=== PATIENT | female | born 1995 | race Caucasian/White ===

== ENCOUNTER 2020-09-26 10:01 | Emergency (ER) | payer MEDICAID, SELFPAY ==
[2020-09-26 10:10] VITALS: BP 120/79; PULSE 86; RESP 20; TEMP 36.6; O2SAT 100; BMI 24.7
[2020-09-26 10:38] LABS: UTC Influenza A Antigen Negative (Negative)
[2020-09-26 10:39] LABS: UTC Influenza B Antigen Negative (Negative)
--- NOTE | 2020-09-26 10:44 | HMH.EDUTC ---
[facility] [place] Clinical Impression: Dental abscess, Exposure to COVID-19 virus Sinusitis Qualifiers: Sinusitis location: unspecified location Chronicity: acute Recurrence: non-recurrent Qualified Code(s): J01.90 - Acute sinusitis, unspecified Disposition: Home, Self-Care Condition on Discharge: Good Instructions: DI for Sinusitis, Preventing the Spread of Coronavirus Discharge Instructions Additional Instructions: Drink plenty of fluids. Take tylenol for pain or fever. Return if you begin to have difficulty breathing. Follow up with your regular doctor. GO TO THE ER FOR ANY WORSENING SYMPTOMS Prescriptions: clindamycin HCL [Clindamycin HCl] 300 mg PO TID 10 Days #30 cap Transmission Status: Received by [id number] Referrals: PCP,No [Primary Care Provider] - Time of Disposition: 10:49 Medical Decision Making - Medical Records Medical records reviewed: No: I reviewed the patient's medical records. - Tarun Inquiry Pt receiving controlled substance: No Vital Signs: 09/26/20 10:10 09/26/20 10:59 Temperature 97.8 F 97.8 F Temperature Source Oral Pulse Rate 86 Pulse Rate [Right Brachial] 86 Respiratory Rate 20 20 Blood Pressure 120/79 Blood Pressure [Right Arm] 120/79 Blood Pressure Mean [Right Arm] 92 Blood Pressure Source [Right Arm] Automatic Cuff Blood Pressure Position [Right Arm] Sitting 02 Sat by Pulse Oximetry 100 Oxygen Delivery Method Room Air - Lab Data Lab Results 09/26/20 10:29: Influenza Type A Ag Negative, Influenza Type B Ag Negative Orders (Tests/Meds): ORDERS Category Date Time Status Covid-19 Nasal PCR Sendout [facility] 09/26/20 10:15 Received [facility] [place] - General Stated complaint: runny nose,cough Time Seen by Provider: 09/26/20 10:44 Mode of Arrival: Ambulatory Source of Information: Patient Limitations: No Limitations Description of Symptoms (Recalled from Triage Doc. by RN): PATIENT C/O COUGH, RUNNY NOSE, SOA, CHILLS, AND EYES WATERING X 2 WEEKS. ALSO C/O PAIN AND SWELLING TO A RIGHT BOTTOM TOOTH HEENT Symptoms (Recalled from RN notes): Yes Resp Symptoms (Recalled from RN notes): Yes Skin Symptoms (Recalled from RN notes): No MS Symptoms (Recalled from RN notes): No Functional Status (Recalled from RN notes): WNL - History of Present Illness Provider Complaint: She c/o sinus congestion, right sided facial puffiness when she first wakes up in the morning, nasal drainage and dental pain. She states that she has an abscessed tooth on the right lower side of her mouth. She denies any fever or chills. - Related Data Previous Rx's Medication Instructions Recorded clindamycin HCL [Clindamycin HCl] 300 mg PO TID 10 Days #30 cap 09/26/20 Allergies Allergy/AdvReac Type Severity Reaction Status Date / Time Penicillins Allergy Unknown - Verified 05/02/18 13:28 - Worker's Comp Is this a Worker's Comp case?: No [facility] History - Hepatitis A Screen Drug use history?: No High risk sexual behaviors?: No History of sexually transmitted infection?: No Currently employed?: No Childcare worker?: No Do you have indoor plumbing?: Yes Do you have electricity?: Yes Attestation statement:: This patient has been screened for Hepatitis A risk factors. I have reviewed the patient's past medical history: Yes Medical History: Denies:: Cancer, Diabetes Mellitus Type 1, Diabetes Mellitus Type 2, MRSA Amputation: No Fractures: No - Social History Smoking Status: Current every day smoker Tobacco Type: cigarettes # Packs/Day (cigarettes): 0 Alcohol Intake: never Occupational Status: other ROS Obtained: Yes All systems reviewed & no additional complaints - Constitutional Constitutional: Reports system reviewed and no additional complaints, except as docu - Eyes Eyes: Reports system reviewed and no additional complaints, except as docu - ENT Ears, Nose, Mouth, and Throat: Reports as per HPI - Cardiovascular
[2020-09-26 10:59] VITALS: BP 120/79; PULSE 86; RESP 20; TEMP 36.6; O2SAT 100
[2020-09-27 13:58] LABS: Covid-19 Nasal PCR Sendout Lex Not Detected
== END 2020-09-26 11:02 | disposition home or self-care (01) ==
PROVIDERS: Emergency Provider Nurse Practitioner Family
DX: Z20.828 Contact with and (suspected) exposure to other viral communicable diseases (principal); K04.7 Periapical abscess without sinus; J01.90 Acute sinusitis, unspecified
CPT/HCPCS: 87804; 99201; U0004

== ENCOUNTER → 2020-12-16 10:26 | Outpatient (CLI) | payer MEDICAID, SELFPAY | PROVIDERS: Visit Provider Nurse Practitioner Obstetrics & Gynecology | DX: Z34.90 Encounter for supervision of normal pregnancy, unspecified, unspecified trimester (principal) | CPT/HCPCS: 36415; 84702 ==

== ENCOUNTER → 2021-02-10 14:49 | Outpatient (CLI) | payer MEDICAID, SELFPAY ==
--- NOTE | 2021-02-10 14:49 | US_ITS ---
PROCEDURE: US OB >= 14 WEEKS FETUS CLINICAL INDICATION: for dates COMPARISON: US OBTV US OB transvaginal from 11/28/2018 FINDINGS: There is a single live fetus present which is in cephalic presentation. heart and body motion noted. FHR is 153 beats per minute. Cervix is closed. Placenta is anterior and grade 1. No previa. Average ultrasound age is 17 weeks 1 day. Measurements: Average ultrasound age 17weeks 1day. Gestational Age 19weeks Estimated due date by ultrasound age 1007/20/2021. Estimated weight 190g BPD = 17weeks 6days OFD = 17weeks HC = 17weeks AC = 17weeks 2days FL = 17weeks 4days Growth Percentile= 2Percent% Heart Rate = 153bpm Cerebellum = Humerus = HC/AC is 1.16 CI is 0.84 FL/BPD is 0.64 FL/AC is 0.21 IMPRESSION: Live IUP at 17 weeks 1 day. Estimated due date by ultrasound is 07/20/2021. This study not constitute a complete anatomy exam. Dictated by: Jaime Padron MD 02/11/2021 05:54 Jaime Padron MD in [facility] 02/11/2021 05:54
== END ==
PROVIDERS: PCP Nurse Practitioner Obstetrics & Gynecology; Visit Provider Nurse Practitioner Obstetrics & Gynecology
DX: Z34.90 Encounter for supervision of normal pregnancy, unspecified, unspecified trimester (principal)
CPT/HCPCS: 76805

== ENCOUNTER → 2021-04-22 08:00 | Outpatient (CLI) | payer MEDICAID, SELFPAY | PROVIDERS: Visit Provider Nurse Practitioner Obstetrics & Gynecology | DX: O23.42 Unspecified infection of urinary tract in pregnancy, second trimester (principal); N39.0 Urinary tract infection, site not specified | CPT/HCPCS: 87086; 87088; 87186 ==

== ENCOUNTER → 2021-04-22 18:17 | Outpatient (CLI) | payer MEDICAID, SELFPAY | PROVIDERS: Visit Provider Nurse Practitioner Obstetrics & Gynecology | DX: Z34.90 Encounter for supervision of normal pregnancy, unspecified, unspecified trimester (principal) ==

== ENCOUNTER → 2021-04-29 09:33 | Outpatient (CLI) | payer MEDICAID, SELFPAY ==
[2021-04-29 10:07] LABS: Basophils # 0.1 K/mm3 (0-0.2); Basophils % 0.5 % (0.1-2.0); Eosinophils # 0.3 K/mm3 (0.0-0.4); Eosinophils % 2.4 % (0.1-12.0); Hematocrit 36.4 % (37.0-47.0); Hemoglobin 12.6 g/dL (12.2-16.2); Lymphocytes # 2.2 K/mm3 (0.7-4.5); Lymphocytes % 15.3 % (10-50); Mean Corpuscular HGB Conc 34.6 g/dL (31.8-35.4); Mean Corpuscular Hemoglobin 31.2 pg (27.0-31.2); Mean Corpuscular Volume 90.1 fl (81-99); Mean Platelet Volume 8.3 fl (7.4-10.4); Monocytes # 0.6 K/mm3 (0.1-1.0); Neutrophils # 11.2 K/mm3 (1.8-7.8); Platelet Count 182 K/mm3 (142-424); Red Blood Count 4.04 M/mm3 (4.20-5.40); Red Cell Distribution Width 13.8 % (11.5-17.5); White Blood Count 14.4 K/mm3 (4.8-10.8)
[2021-04-30 10:10] LABS: HIV Screen 4th Generation wRfx Non Reactive (Non Reactive); Hepatitis B Surface Antigen Negative (Negative); Hepatitis C Antibody <0.1 s/co ratio (0.0-0.9)
[2021-04-30 12:40] LABS: HSV 2 IgG, Type Spec <0.91 index (0.00-0.90); Rapid Plasma Reagin Ab Titer Non Reactive (NonRea<1:1)
== END ==
PROVIDERS: Visit Provider Nurse Practitioner Obstetrics & Gynecology
DX: Z34.91 Encounter for supervision of normal pregnancy, unspecified, first trimester (principal); Z3A.27 27 weeks gestation of pregnancy
CPT/HCPCS: 36415; 85025; 86592; 86695; 86703; 86762; 86790; 86850; 87340; 87380; G0432

== ENCOUNTER → 2021-06-16 10:01 | Outpatient (CLI) | payer MEDICAID, SELFPAY ==
--- NOTE | 2021-06-16 10:02 | US_ITS ---
PROCEDURE: US OB BIOPHYSICAL PROFILE CLINICAL INDICATION: measurning smaller than dates TECHNIQUE: FINDINGS: The following parameters are obtained: Average ultrasound age is Average 34weeks 6days Estimated due date by ultrasound is 07/22/2021. Estimated weight is 2,489g. This is 34th percentile. The placenta is anterior and grade 2. No previa or abruption. BPD: 34weeks 3days OFD: 34weeks 3days HC: 34 weeks 4 days AC: 35 weeks 0 days FL: 34 weeks 1 day heart rate: 140bpm bpm. HC/AC: 1 Cephalic index: 0.81 FL/BPD: 0.76 FL/AC: 0.21 Amniotic fluid index: 10.65cm Qualitative AFV: 2 breathing movements: 2 Gross body movements: 2 Tone: 2 Biophysical profile score: 8 IMPRESSION: Live IUP with an average ultrasound age of 34 weeks 6 days. Estimated weight is 2489 g which is 34th percentile. Cephalic presentation. Biophysical profile 8 of 8 with normal amniotic fluid index Dictated by: Jaime Padron MD 06/16/2021 17:30 Jaime Padron MD in [facility] 06/16/2021 17:30
== END ==
PROVIDERS: Visit Provider Nurse Practitioner Obstetrics & Gynecology
DX: O36.5990 Maternal care for other known or suspected poor fetal growth, unspecified trimester, not applicable or unspecified (principal)
CPT/HCPCS: 76816; 76819

== ENCOUNTER → 2021-06-17 17:27 | Outpatient (CLI) | payer MEDICAID, SELFPAY | PROVIDERS: Visit Provider Nurse Practitioner Obstetrics & Gynecology | DX: Z34.90 Encounter for supervision of normal pregnancy, unspecified, unspecified trimester (principal); Z3A.34 34 weeks gestation of pregnancy | CPT/HCPCS: 86403 ==

== ENCOUNTER → 2021-07-02 15:13 | Outpatient (CLI) | payer MEDICAID, SELFPAY | PROVIDERS: Visit Provider Nurse Practitioner Obstetrics & Gynecology | DX: N39.0 Urinary tract infection, site not specified (principal); O23.40 Unspecified infection of urinary tract in pregnancy, unspecified trimester | CPT/HCPCS: 87086; 87088; 87186 ==

== ENCOUNTER → 2021-07-10 11:30 | Outpatient (CLI) | payer MEDICAID, SELFPAY | PROVIDERS: PCP Nurse Practitioner Obstetrics & Gynecology; Visit Provider Nurse Practitioner | DX: Z20.822 Contact with and (suspected) exposure to COVID-19 (principal) | CPT/HCPCS: C9803; U0003; U0005 ==

== ENCOUNTER 2021-07-12 12:02 | Outpatient (CLI) | payer MEDICAID, SELFPAY ==
--- NOTE | 2021-07-12 12:05 | PC.NURSE ---
Patient arrived on unit at this time.
[2021-07-12 12:07] VITALS: BP 129/82; PULSE 109; RESP 21; O2SAT 99; BMI 30.2
[2021-07-12 12:26] LABS: Microscopic, Urine URINE MICROSCOPIC (MICROSCOPIC)
[2021-07-12 12:30] LABS: Appearance,Urine SL CLOUDY (Clear); Bilirubin,Urine Negative (Negative); Blood, Urine Negative (Negative); Color,Urine YELLOW (Yellow); Glucose,Urine (UA) Negative (Negative); Ketones,Urine Negative (Negative); Leukocyte Esterase,Urine 3+ (Negative); Nitrate,Urine POSITIVE (Negative); PH,Urine 6.5 (5.0-8.5); Protein,Urine Negative (Negative); Specific Gravity, Urine 1.015 (1.005-1.030)
[2021-07-12 12:42] LABS: Benzodiazepines Screen,Urine Negative ng/ml (<200)
[2021-07-12 12:43] LABS: Amphetamine/Metha Screen,Urine Negative ng/ml (<1000); Barbiturates Screen,Urine Negative ng/ml (<200)
[2021-07-12 12:44] LABS: Cannabinoid Screen,Urine Positive ng/ml (<50)
[2021-07-12 12:45] LABS: Cocaine Screen,Urine Negative ng/ml (<300); Methadone Screen,Urine Negative ng/ml (<300)
[2021-07-12 12:46] LABS: Opiate Screen,Urine Negative ng/ml (<300); Phencyclidine Screen,Urine Negative ng/ml (<25)
[2021-07-12 12:59] VITALS: BMI 30.2
[2021-07-12 13:01] LABS: Amorphous Sediment,Urine 1+ /lpf; Bacteria,Urine 3+ /lpf; WBC,Urine 20-50 #/hpf (0-3)
[2021-07-12 13:03] LABS: Fetal Membrane Rupture (Rapid) Negative (Negative)
== END 2021-07-12 14:40 | disposition hospice, home (50) ==
LOC: OBOUT 12:04 → OB 12:07
PROVIDERS: Visit Provider Nurse Practitioner Obstetrics & Gynecology
DX: Z34.90 Encounter for supervision of normal pregnancy, unspecified, unspecified trimester (principal)
CPT/HCPCS: 59025; 80305; 81001; 84112; 87086; 87088; 96372; G0463

== ENCOUNTER 2021-07-13 04:47 | Inpatient (IN) | payer MEDICAID, SELFPAY ==
[2021-07-13] VITALS (8 sets, daily range): BP systolic 110–134; BP diastolic 65–86; PULSE 54–82; RESP 16–18; TEMP 36.3–36.9; O2SAT 97–99; BMI 29.0
[2021-07-13 06:04] LABS: Basophils # 0.1 K/mm3 (0-0.2); Basophils % 0.4 % (0.1-2.0); Eosinophils # 0.2 K/mm3 (0.0-0.4); Eosinophils % 1.1 % (0.1-12.0); Hematocrit 38.2 % (37.0-47.0); Hemoglobin 12.3 g/dL (12.2-16.2); Lymphocytes # 2.7 K/mm3 (0.7-4.5); Lymphocytes % 18.9 % (10-50); Mean Corpuscular HGB Conc 32.2 g/dL (31.8-35.4); Mean Corpuscular Hemoglobin 28.9 pg (27.0-31.2); Mean Corpuscular Volume 89.8 fl (81-99); Mean Platelet Volume 10.4 fl (7.4-10.4); Monocytes # 0.6 K/mm3 (0.1-1.0); Monocytes % 4.1 % (1.7-9.3); Neutrophils # 10.9 K/mm3 (1.8-7.8); Neutrophils % 75.4 % (37.0-80.0); Platelet Count 223 K/mm3 (142-424); Red Blood Count 4.25 M/mm3 (4.20-5.40); Red Cell Distribution Width 14.6 % (11.5-17.5); White Blood Count 14.5 K/mm3 (4.8-10.8)
[2021-07-13 06:21] LABS: Anion Gap 10.1 mEq/L (5-15); Blood Urea Nitrogen 5 mg/dl (7-17); Calcium 9.4 mg/dl (8.4-10.2); Carbon Dioxide 21 mmol/L (22.0-30.0); Chloride 108 mmol/L (98-107); Creatinine Clearance Estimated 241 mL/min (50-200); Estimated Glomerular Filt Rate 191 ml/min (>60); GFR (African American) 232 ML/MIN (>60); Glucose 91 mg/dl (74-100); Potassium 4.1 mmoL/L (3.5-5.1); Sodium 135 mmol/L (136-145)
[2021-07-13 06:22] LABS: Amphetamine/Metha Screen,Urine Negative ng/ml (<1000); Barbiturates Screen,Urine Negative ng/ml (<200)
[2021-07-13 06:23] LABS: Benzodiazepines Screen,Urine Negative ng/ml (<200)
[2021-07-13 06:24] LABS: Cannabinoid Screen,Urine Positive ng/ml (<50); Cocaine Screen,Urine Negative ng/ml (<300)
[2021-07-13 06:25] LABS: Methadone Screen,Urine Negative ng/ml (<300); Opiate Screen,Urine Negative ng/ml (<300)
[2021-07-13 06:26] LABS: Phencyclidine Screen,Urine Negative ng/ml (<25)
--- NOTE | 2021-07-13 08:42 | HMH.OPNOTE ---
Date of procedure: 07/13/21 Pre-op Diagnosis:: Term , previous section Post-op Diagnosis:: Term , previous section Procedure performed:: Repeat lower segment transverse section Surgeon:: Dannie Morocho MD [employer] Supervisor(s):: Radha Perkins MANAGER PE:: Other (Andrew Springer) Anesthesia: spinal Estimated blood loss (mL): 800 Clinical Note:: She is a 26-year-old 3 para 2 at 39 weeks gestational age. She has had 2 previous sections and as result of that is having a repeat lower segment transverse section. Operative findings:: A liveborn female child at 8:00 on the morning of July 13, 2021. The baby had Apgars of 8 at 1 minute and 9 at 5 minutes. Ovaries and tubes appeared normal. Operative note:: She was taken to the operating room where spinal anesthesia was found be adequate. She was prepped and draped in normal sterile fashion in the supine position with a leftward tilt. A No catheter was in the bladder. A Pfannenstiel skin incision was made with knife then carried through to the underlying layer of fascia with cautery. The fascia was opened in the midline with cautery and extended laterally using Ferreira scissors. Mann clamps were applied to the superior aspect of the fascial incision which was tented up and the underlying rectus muscles dissected off using cautery. The Mann clamps were then applied to the inferior aspect of the fascial incision which in a similar fashion was tented up and the underlying rectus muscles dissected off using cautery. The rectus muscles were then in the midline, the peritoneum identified, and entered sharply with Metzenbaum scissors. This incision was then extended superiorly and inferiorly with cautery. We had good visualization of the bladder inferiorly. The bladder peritoneum was then opened in the midline and extended laterally using Metzenbaum scissors. A bladder flap was created digitally. Transverse incision was made through the uterine muscle to the amnion. This incision was then extended laterally using fingers traction. The amnion was entered sharply with knife. There was clear amniotic fluid. The infant's head was then delivered atraumatically. This was followed by the anterior shoulder and the rest of the 's body atraumatically. The oropharynx and nasopharynx were bulb suctioned. The baby was vigorous so we allowed the cord to continue to pulsate for approximately 1 minute. The cord was then doubly clamped and cut. The was then handed off to Dr. Queen who assigned Apgars of 8 at 1 minute and 9 at 5 minutes. We then obtained cord blood. Using gentle traction on the cord and countertraction on the fundus I was able to easily deliver the placenta intact. It had a normal three-vessel cord. The uterus was then cleared of clots and debris . The uterus was exteriorized from the abdominal cavity. The uterine incision was then closed using running 0 Vicryl suture in a locked fashion. A second layer of the same suture was used to imbricate the first layer. The bladder peritoneum was then closed using running 2-0 Vicryl suture in a locked fashion. The gutters and cul-de-sac were then cleared of clots and debris . Once again hemostasis was assured. The uterus was then returned to the abdominal cavity. The peritoneum was grasped with Franchesca clamps and closed using running 2-0 Vicryl suture. The rectus muscles were then reapproximated using running 0 Vicryl suture. The fascia was closed using running #1 Vicryl suture. I then undermined the lower aspect of the incision since there was significant scar tissue here. The subcutaneous tissues were then irrigated with warm water followed by closure Trena's fascia using running 2-0 Monocryl suture. The skin was closed with subcuticular strata fix Monocryl suture. I then cleaned the skin with Hibiclens. Sterile dressings were applied. We then performed a tap block under u
--- NOTE | 2021-07-13 08:49 | HMH.OBAPHP ---
OB - H&P: HPI Antepartum - History of Present Illness Chief complaint: Term , previous section History of present illness: She is a 26-year-old 3 para 2 at 39 weeks gestational age. She had 2 previous sections and as result of that she is offered repeat lower segment transverse section at term. - History of Present Criteria for establishing EDC:: LMP confirmed by 1st trimester US care: good care Ultrasounds: normal 1st trimester US, normal mid trimester US Obstetrical complications: previous Medical complications: none - Labs Blood type: O (+) positive Rubella: immune RPR/VDRL: nonreactive GBS status: negative HBsAG: negative [facility] History I have reviewed the patient's past medical history: Yes Medical History: Denies:: Cancer, Diabetes Mellitus Type 1, Diabetes Mellitus Type 2, MRSA *Have you ever received a pneumonia vaccine?: No *Have you received a flu vaccine this season?: No Other Surgeries: Yes: Amputation: No Fractures: No - *Social History Smoking Status: Current every day smoker Tobacco Type: cigarettes # Packs/Day (cigarettes): 0 Alcohol Intake: never Substance Use Type: amphetamines, methamphetamine, marijuana *Occupational Status:: unemployed *Travel in the last 8 weeks: None Family Hx:: No significant family history Para: 1 Review of Systems - Review of Systems Review of systems:: pertinent systems reviewed and negative unless documented below Meds Home Medications Medication Instructions Recorded Confirmed Type Vit No.126/Iron/Folic 1 tab PO DAILY 07/13/21 07/13/21 History [Classic ] RX: Famotidine [Acid Venture Capital Analyst] 20 mg PO DAILY 07/13/21 07/13/21 History Allergies Allergy/AdvReac Type Severity Reaction Status Date / Time Penicillins Allergy Unknown - Verified 07/08/21 14:35 OB - H&P: Exam - Physical Exam Vital signs: Temp Pulse Resp BP Pulse Ox 97.8 F 82 18 110/72 99 07/13/21 06:01 07/13/21 06:01 07/13/21 06:01 07/13/21 06:01 07/13/21 06:01 - Constitutional no acute distress - Routine HEENT Exam Head: Present: normocephalic Eye: Present: EOMI, PERRL ENT: Present: mucous membranes moist - Routine Neck Exam Present: supple, full ROM - Routine Respiratory Exam Absent: accessory muscle use (good air entry bilaterally), respiratory distress, wheezes, crackles - Routine Cardiovascular Exam Present: RRR. Absent: murmur - Routine Abdominal Exam Present: soft, normoactive bowel sounds. Absent: tenderness, distended, guarding - Routine Rectal Exam Patient deferred: visual exam, digital exam - Routine Exam Patient deferred: external exam, groin exam, perineal exam - Routine Extremities Exam Present: full ROM. Absent: cyanosis, edema - Routine Skin Exam Present: intact. Absent: cyanosis - Routine Neurological Exam Present: alert, oriented X3 - Routine Psychiatric Exam Present: normal affect OB - Results - Labs Labs: Short CBC 07/13/21 Range/Units 05:25 WBC 14.5 H (4.8-10.8) K/mm3 Hgb 12.3 (12.2-16.2) g/dL Hct 38.2 (37.0-47.0) % Plt Count 223 (142-424) K/mm3 [facility] 07/13/21 05:25 Sodium 135 L Potassium 4.1 Chloride 108 H Carbon Dioxide 21 L BUN 5 L Creatinine 0.40 L Glucose 91 Calcium 9.4 OB - A/P Antepartum (1) Previous section Status: Acute (2) Delivery by section using transverse incision of lower segment of uterus Status: Acute (3) Maternal drug abuse, antepartum Status: Acute - Additional Plan Planning to breastfeed?: No Plan: other Additional Information:: She is here for repeat lower segment transverse section.
--- NOTE | 2021-07-13 09:14 | HMH.ANESCL ---
[facility] Anesthesia Checklist - Patient Identification Patient Identification: Arm Band, Verbal (Name & ) - Structural Data Admitted From: Home Planned Operative Procedure/s: Repeat Consent for Planned Operative Procedure(s) Verified: Yes Verified Documents: Surgical Consent - NPO Status Verified Time NPO: 00:00 - Chart Verification Results Verified: CBC, BMP - Cardiovascular Assessment Heart Sounds: S1 & S2 Pulse Rhythm: Regular - Airway Assessment C-Spine Mobility Assessed: Yes TMJ Mobility Assessed: Yes Dentition: Poor Dentition - Neurological Assessment Level of Consciousness: Awake, Alert, Appropriate - Anesthesia Plan Anesthesia Risk discussed: Yes ASA Class: II Anesthesia Type: Spinal [facility] History Medical History: Denies:: Cancer, Diabetes Mellitus Type 1, Diabetes Mellitus Type 2, MRSA *Have you ever received a pneumonia vaccine?: No *Have you received a flu vaccine this season?: No Anesthesia experience/problems:: no issues Other Surgeries: Yes: Amputation: No Fractures: No - *Social History Smoking Status: Current every day smoker Tobacco Type: cigarettes # Packs/Day (cigarettes): 0 Alcohol Intake: never Substance Use Type: amphetamines, methamphetamine, marijuana *Occupational Status:: unemployed *Travel in the last 8 weeks: None Family Hx:: No significant family history Para: 1
--- NOTE | 2021-07-13 09:16 | P.PN_ITS ---
[facility] Anesthesia Record Part I Intake, IV Amount: 1,500 Estimated blood loss (mL): 800 Urine output (mL): 200 Blood Pressure: 131/80 SaO2: 97 Pulse Rate: 54 Respiratory Rate: 16 Temperature: 97.9 F Patient is:: Awake Stable to PACU at:: 08:43
--- NOTE | 2021-07-13 10:47 | PC.NURSE ---
0914-detailed report called to Ever Doyle,RN 0917-pt transported to OB room 276 via hospital bed with ashish rails up and left in care of Aida with bed locked in lowest position, vss, family at bedside, pt stable
[2021-07-13 11:42] LABS: Microscopic,Cath URINE MICROSCOPIC (MICROSCOPIC)
[2021-07-13 11:58] LABS: Appearance,Urine/Cath CLEAR (Clear); Bilirubin,Cath Negative (Negative); Blood, Urine/Cath Negative (Negative); Color,Urine/Cath YELLOW (Yellow); Glucose,Urine/Cath (UA) Negative (Negative); Ketones,Urine/Cath Negative (Negative); Leukocyte Esterase,Cath 2+ (Negative); Nitrate,Cath POSITIVE (Negative); Protein,Urine/Cath Negative (Negative); Specific Gravity, Urine/Cath 1.015 (1.005-1.030); Urobilinogen,Cath 0.2 EU/dl (0.2)
[2021-07-13 12:17] LABS: Bacteria,Urine/Cath 1+ /lpf
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
[2021-07-14 03:37] VITALS: BP 127/77; PULSE 68; RESP 18; TEMP 36.6
[2021-07-14 08:05] LABS: Hematocrit 28.7 % (37.0-47.0); Hemoglobin 9.5 g/dL (12.2-16.2)
--- NOTE | 2021-07-14 12:03 | P.PN_ITS ---
Internal Medicine - PN: Subj *Date: 07/14/21 *Time: 09:00 Interval history: She is doing very well this morning. She is eating and drinking and ambulating. She is doing very well with a tap block. She has some depressive symptoms and we will have her see behavioral health. Exam Vital signs and Labs for Last 24 Hours: Temp Pulse Resp BP Pulse Ox 97.9 F 68 18 127/77 98 07/14/21 03:37 07/14/21 03:37 07/14/21 03:37 07/14/21 03:37 07/13/21 23:33 Laboratory Results - last 24 hr 07/13/21 07:40: Urine Color Yellow, Urine Appearance Clear, Urine pH 7.0, Ur Specific [place] 1.015, Urine Protein Negative, Urine Glucose (UA) Negative, Urine Ketones Negative, Urine Blood Negative, Urine Nitrate Positive, Urine Bilirubin Negative, Urine Urobilinogen 0.2, Ur Leukocyte Esterase 2+ A, Urine RBC None, Urine WBC 3-5, Ur Squamous Epith Cells None, Urine Bacteria 1+ 07/14/21 07:41: Hgb 9.5 L, Hct 28.7 L I & O for Last 24 hours: Intake & Output 07/12/21 07/13/21 07/14/21 07/15/21 11:59 11:59 11:59 11:59 Intake Total 1500 / 1500 Output Total 200 / 200 Balance 1300 / 1300 Weight 159 lb Microbiology Reports for the Last 24 Hours: Microbiology 07/13/21 07:40 Urine,Catheterized Urine Culture - Preliminary Gram Negative Rods - Constitutional no acute distress - *Routine HEENT Exam Head: Present: normocephalic Eye: Present: EOMI, PERRL ENT: Present: mucous membranes moist Assessment and Plan (1) Previous section Status: Acute Category: Surgical Code(s): Z98.891 - History of uterine scar from previous surgery (2) Delivery by section using transverse incision of lower segment of uterus Status: Acute Category: Medical Code(s): O82 - Encounter for delivery without indication (3) Maternal drug abuse, antepartum Status: Acute Category: Medical Code(s): O99.320 - Drug use complicating , unspecified trimester; F19.10 - Other psychoactive substance abuse, uncomplicated - Assessment and plan all Dx Assessment and Plan for all problems:: She continues to do very well. We will have her see behavioral health today. Her pain is well controlled. We will consider sending her home tomorrow. The baby is doing well.
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
[2021-07-14 20:29] VITALS: BP 112/73; PULSE 92; RESP 17; TEMP 37.2; O2SAT 100
--- NOTE | 2021-07-15 09:52 | [facility].OBDCSM ---
General - General Admission date:: 07/13/21 Discharge date: 07/15/21 HPI - History of Present Illness History of present illness: She is 26-year-old 3 para 2 who was 39 weeks gestational age. She is had previous sections and as result of that was offered repeat lower segment transverse section at term. Hospital Course Hospital Course: On July 13 she underwent a repeat lower segment transverse section. She delivered a liveborn female child at 8:00. The baby Apgars of 8 at 1 minute and 9 at 5 minutes. She had a tap block at the time of her section. She has done well postoperatively and has remained afebrile throughout her hospitalization. Her pain is well controlled. She is eating and drinking and ambulating. She is bottlefeeding. She has O+ blood, she is rubella immune and was group B streptococcus negative. 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 She is discharged home to follow-up with me in approximately 2 weeks time. She was given the usual instructions with respect to limiting her activity, driving and sexual activity. She was given instructions with respect to wound care. She will continue with her vitamins and iron. She was started on Zoloft for depression. She has a history of depression. We will continue with Zoloft 50 mg. She was given a prescription for Percocet 5/325 number 12 tablets. She will also take ibuprofen. Her condition on discharge is stable and improved. Rhogam Administration: Not Indicated Objective Vital signs: Temp Pulse Resp BP Pulse Ox 99.0 F 92 H 17 112/73 100 07/14/21 20:29 07/14/21 20:29 07/14/21 20:29 07/14/21 20:29 07/14/21 20:29 no acute distress - *Routine HEENT Exam Head: Present: normocephalic Eye: Present: EOMI, PERRL ENT: Present: mucous membranes moist DS: Diagnosis - Discharge Diagnosis (1) Previous section Status: Acute (2) Delivery by section using transverse incision of lower segment of uterus Status: Acute (3) Maternal drug abuse, antepartum Status: Acute Discharge Plan - Patient Discharge Instructions ACTIVITY: No heavy lifting DIET: continue same diet Additional Instructions: *No strenuous activity* *No Lifting anything heavier than your baby in their carseat* *Nothing in the Vagina for 6 weeks* Patient Instructions: Depression, Hemorrhage, DI for , DI for Pre-eclampsia, [facility] Post Discharge Instructions, Preventing the Spread of Coronavirus Discharge Instructions - Follow up Plan Follow up with: Dannie Morocho MD [Staff Physician] - 07/28/21 11:00 am Disposition: Home, Self-Care Condition at discharge:: Stable Home Medications: Home Medications Medication Instructions Recorded Confirmed Type Famotidine [Acid Filbert Grower] 20 mg PO DAILY 07/13/21 07/13/21 History Vit No.126/Iron/Folic 1 tab PO DAILY 07/13/21 07/13/21 History [Classic ] Oxycodone HCl/Acetaminophen 1 tab PO Q4-6H PRN #12 tab 07/15/21 Rx [Percocet 5/325mg tablet] Sertraline HCl [Zoloft 50mg tablet] 50 mg PO HS #30 tab 07/15/21 Rx Prescriptions/Medication Reconciliation: New Oxycodone HCl/Acetaminophen [Percocet 5/325mg tablet] 1 tab PO Q4-6H PRN #12 tab PRN Reason: Severe Pain Sertraline HCl [Zoloft 50mg tablet] 50 mg PO HS #30 tab Continued Vit No.126/Iron/Folic [Classic ] 1 tab PO DAILY Famotidine [Acid Filbert Grower] 20 mg PO DAILY - Problem Reconciliation Problems Reviewed?: Yes
== END 2021-07-15 13:10 | disposition home or self-care (01) | DRG 787 ==
PROVIDERS: Admitting Provider Nurse Practitioner Obstetrics & Gynecology; PCP Emergency Medicine; Visit Provider Nurse Practitioner Obstetrics & Gynecology
PROC: 10D00Z1 Extraction of Products of Conception, Low, Open Approach (ICD-10-PCS; CPT 59514; principal; 2021-07-13 07:30)
DX: O34.211 Maternal care for low transverse scar from previous cesarean delivery (principal); O99.324 Drug use complicating childbirth; Z3A.39 39 weeks gestation of pregnancy; Z37.0 Single live birth; F17.210 Nicotine dependence, cigarettes, uncomplicated; O99.334 Smoking (tobacco) complicating childbirth; F12.10 Cannabis abuse, uncomplicated; O99.344 Other mental disorders complicating childbirth; F32.9 Major depressive disorder, single episode, unspecified
CPT/HCPCS: 59514; 36415; 59025; 80048; 80305; 81001; 84112; 85014; 85018; 85025; 86850; 87086; 87088; 87186; 94761; 96372; C9290; C9803; G0283; G0463; J2405; U0003; U0005

== ENCOUNTER 2023-02-16 19:43 | Emergency (ER) | payer OTHER, SELFPAY ==
[2023-02-16 19:50] VITALS: BP 120/71; PULSE 109; RESP 19; TEMP 36.6; O2SAT 99; BMI 32.1
--- NOTE | 2023-02-16 20:05 | PC.NURSE ---
Dr. Weber at bedside
--- NOTE | 2023-02-16 20:10 | HMH.EDSKAF ---
Discharge Plan Disposition Patient Disposition: Home, Self-Care Prescriptions Prescriptions: New clindamycin HCl 150 mg capsule 150 mg PO TID 7 Days Qty: 21 0RF No Action sertraline 50 MG tablet 50 mg PO HS Referrals Follow up/Referrals: Tania Queen MD [Primary Care Provider] - See instructions Clinical Impressions Clinical Impression: Cellulitis of finger of right hand Instructions Patient Instructions: DI for Skin Abscess Discharge ED Provider: Juanito Weber Skin/Abscess/FB HPI General Chief complaint: Skin/Abscess/Foreign Body Stated complaint: Right hand ring finger swollen and painful Time Seen by Provider: 02/16/23 20:10 Mode of Arrival: Family Vehicle Source of Information: Patient Limitations: No Limitations Description of Symptoms (Recalled from ER Triage Doc. by RN): Pt c/o pain, redness, and swelling to her left hand ring finger. States she gets infected calloses to her hands frequently. Denies fever, chills. No heat to this area. Radial pulses 3+ and [employer] brisk. History of Present Illness HPI narrative: 27-year-old white female presents with a right ring finger proximal swelling and tenderness with a little erythema. She has had no fever chills etc. have any other known skin lesions. . Her listed allergies include penicillin since she was a small child Related Data Home Medications Medication Instructions Recorded Confirmed sertraline 50 mg tablet 50 mg PO HS Depression 02/16/23 02/16/23 Previous Rx's Medication Instructions Recorded clindamycin HCl 150 mg capsule 150 mg PO TID 7 days #21 caps 02/16/23 Allergies Allergy/AdvReac Type Severity Reaction Status Date / Time Penicillins Allergy Unknown - Verified 07/08/21 14:35 [facility] Disclaimer: The information contained in this section may have been updated after the patient was seen, as this information can be updated by other users. Social History Smoking Status: Current every day smoker tobacco type: cigarettes packs per day: 0 alcohol intake: never substance use type: marijuana, amphetamines and methamphetamine current occupational status: unemployed Travel in the last 8 weeks: None ROS Obtained: Yes All systems reviewed & no additional complaints except as documented Physical Exam General General appearance: alert and in no apparent distress Head Head exam: atraumatic and normocephalic Eye Eye exam: Present normal appearance Neck Neck exam: Present normal inspection Respiratory Respiratory exam: Present normal lung sounds bilaterally Cardiovascular Cardiovascular exam: Present regular rate and normal rhythm Extremities Exam Extremities exam: Present tenderness and edema (And erythema of the right ring finger proximal aspect) Neurological Exam Neurological exam: Present alert, oriented X3 and CN II-XII intact Medical Decision Making Medical Records MR Comment: 27-year-old white female presents with some swelling redness and tenderness of her right ring finger. She has had infected calluses in the past and indeed the palmar aspect there is some cracking of the palmaris skin which may have been portal for bacteria to enter. She is not having systemic symptoms at this point and will simply be treated with shot of Rocephin 1 g IM and followed up with clindamycin 150 p.o. 3 times daily x7 days with the instructions to follow-up with her primary care within 2 to 4 days. The patient understands her questions were answered and she is agreeable with this plan. Tarun Inquiry Pt receiving controlled substance: No Tarun was queried for this patient: No Vital Signs: 02/16/23 19:50 Temperature 97.9 F Temperature Source Oral Pulse Rate [Right] 109 H Respiratory Rate 19 Blood Pressure [Left Arm] 120/71 Blood Pressure Mean [Left Arm] 87 Blood Pressure Source [Left Arm] Automatic Cuff 02 Sat by Pulse Oximetry 99 Oxygen Delivery
[2023-02-16 20:23] VITALS: BP 119/79; PULSE 98; RESP 19; TEMP 36.7; O2SAT 98
== END 2023-02-16 20:24 | disposition home or self-care (01) ==
PROVIDERS: Emergency Provider Emergency Medicine; PCP Family Medicine
DX: L03.113 Cellulitis of right upper limb (principal); F17.210 Nicotine dependence, cigarettes, uncomplicated
CPT/HCPCS: 96372; 99283; 99284; J0696